=== PATIENT | female | born 1995 | race Caucasian/White ===

== ENCOUNTER 2022-03-27 20:11 | Emergency (ER) | payer OTHER ==
[~2022-03-27] VITALS: Ht 162.6 cm; Wt 61.4 kg
[2022-03-27] MEDS ORDERED: epiNEPHrine 1 mg/ml inj IM STA (20:24)
[2022-03-27] MEDS ORDERED: albuterol 2.5 MG/3 ML nebule NEB ONE (20:55)
[2022-03-27] MEDS ORDERED: diphenhydrAMINE 50 mg/ml inj IV ONE (20:55)
[2022-03-27] MEDS ORDERED: methylPREDNISolone sod succ 125mg/2ml vial IV ONE (20:55)
[2022-03-27] MEDS ORDERED: EPIN0.3P3 IM (21:50)
[2022-03-27] MEDS ORDERED: PRED20TA PO (21:50)
[2022-03-27 22:07] VITALS: BP 109/68
== END 2022-03-27 22:09 | disposition home or self-care (01) ==
LOC: ER 20:12
DX: T78.40XA Allergy, unspecified, initial encounter (principal); Z88.0 Allergy status to penicillin; Z88.1 Allergy status to other antibiotic agents; Z88.2 Allergy status to sulfonamides; Z88.5 Allergy status to narcotic agent; Z91.018 Allergy to other foods; Z91.040 Latex allergy status; X58.XXXA Exposure to other specified factors, initial encounter
CPT/HCPCS: 94640; 96372; 96374; 96375; 99284; J0171; J1200; J2930; A4615